=== PATIENT | female | born 1965 | race Two or more races ===

== ENCOUNTER 2021-10-28 15:22 | Emergency (ER) | payer OTHER ==
[~2021-10-28] VITALS: Ht 154.9 cm; Wt 59.0 kg
[2021-10-28 17:12] LABS: Basophils # (auto) 0 10 ^3/uL (0-0.2); Basophils % (auto) 0.5 % (0.0-2.0); Eosinophils # (auto) 0.1 10 ^3/uL (0-0.8); Eosinophils % (auto) 0.9 % (0.0-7.0); Hemoglobin 13.7 g/dL (12.2-16.2); Lymphocytes # (auto) 1.9 10 ^3/uL (0.4-5.4); Lymphocytes % (auto) 30.1 % (10.0-50.0); Mean Corpuscular Hemoglobin 30.7 pg (28.0-32.0); Mean Corpuscular Hgb Conc. 35.2 g/dL (32.0-36.0); Mean Corpuscular Volume 87.3 fL (80.0-100.0); Monocytes # (auto) 0.3 10 ^3/uL (0-1.3); Monocytes % (auto) 5.2 % (0.0-12.0); Neutrophils # (auto) 4.1 10 ^3/uL (1.6-8.6); Neutrophils % (auto) 63.3 % (37.0-80.0); Nucleated Red Blood Cells % 0.1 %; Red Blood Cells 4.46 10^6/uL (4.0-5.20); White Blood Cell 6.4 10^3/uL (4.4-10.8)
[2021-10-28] MEDS ORDERED: METF-370 PO (17:24)
[2021-10-28 17:33] LABS: Albumin 3.7 g/dL (3.4-5.0); BUN/Creatinine Ratio 19.4
[2021-10-28 17:35] LABS: Bilirubin, Total 0.4 mg/dL (0.2-1.0); Total Protein 7.5 g/dL (6.4-8.2)
[2021-10-28 17:39] VITALS: BP 115/75
== END 2021-10-28 17:59 | disposition home or self-care (01) ==
LOC: ER 15:22
DX: R73.9 Hyperglycemia, unspecified (principal)
CPT/HCPCS: 36415; 36600; 80053; 82805; 85025